=== PATIENT | female | born 1945 | race Caucasian/White ===

== ENCOUNTER 2019-02-28 22:37 | Observation (INO) ==
[2019-02-28 23:11] LABS: Basophils % 0.3 %; Hematocrit 37.6 % (35.3-44.9); Hemoglobin 13.5 g/dL (11.5-15.4); Immature Granulocytes % 0.3 % (0-4); Lymphocytes # 1.4 K/mcL (0.6-4.6); Lymphocytes % 18.6 %; Mean Corpuscular HGB Conc 35.9 g/dL (31.6-35.5); Mean Corpuscular Hemoglobin 33.3 pg (28.0-33.3); Mean Corpuscular Volume 92.6 fL (83.0-100.0); Mean Platelet Volume 9.9 fL (9.4-12.4); Monocytes # 0.9 K/mcL (0.0-1.3); Monocytes % 11.5 %; Neutrophils # 5.3 K/mcL (1.6-8.9); Platelet Count 232 K/mcL (140-400); Red Blood Count 4.06 M/mcL (3.82-4.97); Red Cell Distribution Width 11.6 % (11.5-14.5); Segmented Neutrophils % 69.3 %; White Blood Count 7.7 K/mcL (4.3-11.1)
[2019-02-28 23:32] LABS: BUN/Creatinine Ratio 23 (6-26); Blood Urea Nitrogen 18 mg/dL (8-23); Calcium 9.3 mg/dL (8.6-10.3); Carbon Dioxide 26 mEq/L (23-29); Chloride 99 mEq/L (98-107); Glucose 110 mg/dL (70-105); Osmolality,Calculated 281 (280-300); Potassium 3.3 mEq/L (3.5-5.1); Sodium 134 mEq/L (136-145); eGFR For African Americans > 60 (> 60); eGFR For Non-African Americans > 60 (> 60)
[2019-02-28 23:33] LABS: Troponin I < 0.03 ng/mL (< 0.04)
[2019-03-01] MEDS ORDERED: Nitroglycerin 0.4 MG TAB.SUBL SL PRN (00:25)
[2019-03-01] MEDS ORDERED: *HR* Heparin 5,000 UNIT/ML VIAL SQ SCH (06:00)
[2019-03-01] MEDS ORDERED: Regadenoson 0.4 MG/5 ML SYRINGE IVP ONE (07:14)
[2019-03-01 07:40] VITALS: BP 171/70
[2019-03-01] MEDS ORDERED: Aspirin 81 MG TAB.CHEW PO SCH (09:00)
[2019-03-01] MEDS ORDERED: hydroCHLOROthiazide 25 MG TABLET PO SCH (09:00)
[2019-03-01] MEDS ORDERED: CVS FISH OIL PO SCH (09:00)
[2019-03-01 09:45] LABS: Hematocrit 39.2 % (35.3-44.9); Hemoglobin 14.4 g/dL (11.5-15.4); Mean Corpuscular HGB Conc 36.7 g/dL (31.6-35.5); Mean Corpuscular Hemoglobin 33.1 pg (28.0-33.3); Mean Corpuscular Volume 90.1 fL (83.0-100.0); Platelet Count 223 K/mcL (140-400); Red Blood Count 4.35 M/mcL (3.82-4.97); Red Cell Distribution Width 11.7 % (11.5-14.5); White Blood Count 5.2 K/mcL (4.3-11.1)
[2019-03-01 09:51] LABS: Estimated Average Glucose 128 mg/dl
[2019-03-01 10:22] LABS: BUN/Creatinine Ratio 17 (6-26); Blood Urea Nitrogen 13 mg/dL (8-23); Calcium 9.3 mg/dL (8.6-10.3); Carbon Dioxide 28 mEq/L (23-29); Chloride 101 mEq/L (98-107); Glucose 106 mg/dL (70-105); Osmolality,Calculated 285 (280-300); Potassium 3.4 mEq/L (3.5-5.1); Sodium 137 mEq/L (136-145); Troponin I < 0.03 ng/mL (< 0.04); eGFR For African Americans > 60 (> 60); eGFR For Non-African Americans > 60 (> 60)
[2019-03-01 10:35] LABS: Thyroid Stimulating Hormone 4.113 mcIU/mL (0.340-5.600)
== END 2019-03-01 16:52 | disposition home or self-care (01) ==
LOC: 3BNU 22:37 → EMEROOARM 22:37 → 3BNU 03-01 00:32
PROVIDERS: ADMIT Internal Medicine; ATTEND Internal Medicine